=== PATIENT | male | born 1940 | race Two or more races ===

== ENCOUNTER 2020-11-26 11:22 | Outpatient (CLI) | payer OTHER | END 2020-11-26 16:28 | disposition home or self-care (01) | LOC: OFIC 805 11:22 | PROVIDERS: ATTEND Otolaryngology | DX: R09.89 Other specified symptoms and signs involving the circulatory and respiratory systems (principal); K21.9 Gastro-esophageal reflux disease without esophagitis; J30.89 Other allergic rhinitis ==